=== PATIENT | female | born 1950 | race Caucasian/White ===

== ENCOUNTER → 2021-03-29 | Outpatient (CLI) | payer MEDICARE ==
[2015-03-11 08:59] VITALS: BP 90/55
[~2021-03-29] MED LIST: ASPI-482 PO; ATOR10TA PO; ATOR40TA59 PO; BIOT25006 PO; CALC-98 PO; CELE200C PO; CELE50CA PO; CLOP75TA PO; FERR325T14 PO; FURO20TA3 PO; FURO40TA4 PO; LISI-517 PO; LISI10TA16 PO; METO25TA4 PO; MULT-629 PO; POTA10TA12 PO; POTA99TA PO; REGADENOSON 0.4 MG/5 ML DISP.SYRIN. IV ONE; SERT25TA PO; SERT50TA PO; WARF5TAB2 PO
--- NOTE | 2021-03-29 18:11 | CARD ---
MR#: [id number] Date of Study: 03/29/2021 Ordering Physician: LESLIE SAMUELS, Referring Physician: Marta AVALOS: Bryon Cueva [facility] APPROVED REPORT EXAM: Two-dimensional and M-mode echocardiogram with Doppler and color Doppler. Other Information Quality : AverageLimitedTechnically LimitedExcellentGoodAverageFairPoorHR: 60bpm Rhythm : NSR INDICATION Cardiac Disease: CAD Surgery/Intervention ICD/Pacemaker: 2D DIMENSIONS Left Atrium(2D)3.9 (1.6-4.0cm)IVSd1.3 (0.7-1.1cm) Aortic Root(2D)2.8 (2.0-3.7cm)LVDd4.1 (3.9-5.9cm) LVOT Diameter2.0 (1.8-2.4cm)PWd1.3 (0.7-1.1cm) LVDs2.5 (2.5-4.0cm)FS (%) 39.0 % SV52.8 ml Aortic Valve AoV Peak Milton.198.6cm/sAoV VTI39.1cm AO Peak GR.15.8mmHgLVOT Peak Milton.91.9cm/s LVOT VTI 20.70cmAO Mean GR.9mmHg LADAN (VMAX)1.02pn2OJU (VTI)1.72cm2 Mitral Valve MV E Xfiwomje34.4cm/sMV DECEL AMZL019fg MV A Ybxnboju03.2cm/sMV GQB87dy E/A Ratio0.7MVA (PHT)3.11cm2 TDI E/Lateral E'14.3E/Medial E'17.4 Pulmonary Valve PV Peak Rfbmuqmc436.4cm/sPV Peak Grad.4mmHg Tricuspid Valve TR P. Ozqnywzj322sz/sTR Peak Gr.32mmHg Pulmonary Vein S1 Xgmynulr39.0cm/sD2 Jtsdripv92.3cm/s LEFT VENTRICLE The left ventricle is normal size. There is mild concentric left ventricular hypertrophy. The left ve ntricular systolic function is normal and the ejection fraction is within normal range. Left ventricu lar ejection fraction of 55 to 60%. There is normal LV segmental wall motion. No left ventricle throm bus noted on this study. There is no ventricular septal defect visualized. There is no left ventricul ar aneurysm. There is no mass noted in the left ventricle. RIGHT VENTRICLE The right ventricle is normal size. There is normal right ventricular wall thickness. The right ventr icular systolic function is normal. Device lead noted in the RV. ATRIA The left atrium is borderline dilated. The right atrium size is normal. The interatrial septum is int act with no evidence for an atrial septal defect or patent foramen ovale as noted on 2-D or Doppler i maging. AORTIC VALVE The aortic valve is calcified but opens well. Doppler and Color Flow revealed trace to mild aortic re gurgitation. There is no significant aortic valvular stenosis. There is no aortic valvular vegetation . MITRAL VALVE The mitral valve is normal in structure and function. There is no evidence of mitral valve prolapse. There is no mitral valve stenosis. Doppler and Color-flow revealed mild mitral regurgitation. TRICUSPID VALVE The tricuspid valve is normal in structure and function. Doppler and Color Flow revealed mild tricusp id regurgitation. There is no tricuspid valve prolapse or vegetation. There is no tricuspid valve kuldeep nosis. PULMONIC VALVE The pulmonary valve is normal in structure and function. Doppler and Color Flow revealed no pulmonic valvular regurgitation. There is no pulmonic valvular stenosis. GREAT VESSELS The aortic root is normal in size. The ascending aorta is normal in size. The pulmonary artery is nor mal. The IVC is normal in size and collapses >50% with inspiration. PERICARDIAL EFFUSION There is no pleural effusion. There is no evidence of significant pericardial effusion. Critical Notification Critical Value: No <Conclusion> The left ventricle is normal size. The left ventricular systolic function is normal and the ejection fraction is within normal range. Left ventricular ejection fraction of 55 to 60%. There is mild concentric left ventricular hypertrophy. Doppler and Color Flow revealed trace to mild aortic regurgitation. There is no significant aortic valvular stenosis. Doppler and Color-flow revealed mild mitral regurgitation. Doppler and Color Flow revealed mild tricuspid regurgitation. Signed by : Kranthi Finnegan MD Electronically Approved : 03/29/2021 18:11:24
--- NOTE | 2021-03-29 18:35 | RAD ---
MR#: [id number] Date of Study: 03/29/2021 Ordering Physician: MANISH ESCAMILLA, Referring Physician: ONEYDA VARMA Tech: SORAYA Arias, ARRT (R) (N) APPROVED REPORT Test Type: Pharmacological Stress Nurse/Tech: Vishal Ibarra RN Test Indications: CAD Cardiac History: CABG 1997, [place] with stents, HTN, PPM, x-smoker Medications: See Electronic Medical Record Medical History: See Electronic Medical Record Resting ECG: Pacemaker spikes noted Resting Heart Rate: 60 bpm Resting Blood Pressure: 192/77mmHg Pretest Chest Pain: None Nurse/Tech Notes Lungs CTA, S1S2 Consent: The procedure was explained to the patient in lay terms. Informed consent was witnessed. Juan R eout was entered into [employer]. History and Stress Test performed by RT Lorenzo (R) (N) Pharm. Details Pharmacologic stress testing was performed using 0.4mg per 5ml of regadenoson given intravenously ove r 7-10 seconds. Stress Symptoms No chest pain or symptoms. POST EXERCISE Reason for Termination: Infusion complete Max HR: 72 bpm Max Blood Pressure: 164/64mmHg Blood Pressure response to exercise: Normal blood pressure response during stress. Heart Rate response to exercise: Normal response Chest Pain: No. Arrhythmia: No. ST Change: No. INTERPRETATION Stress EKG Conclusion: The resting EKG shows a paced rhythm. The patient remains in a paced rhythm throughout the study. Imaging Protocol IMAGE PROTOCOL: Rest Tc-99m/stress Tc-99m 1 day Rest: Stress: Viability: Radiopharm.Tc99m PgrxcrqcyZg23g Sestamibi Cjxa45cEz 31mCi Img Date 03/29/2021 03/29/2021 Inj-Img Inqo21jcy. 60min. Rest Admin Site:IV - Right ForearmAdministrator:RT Lorenzo (R)(N) Stress Admin Site: IV - Right ForearmAdministrator: RT Lorenzo (R)(N) STRESS DATA End Diast. Vol.70.0mlLVEDV index BSA45.0ml End Syst. Vol.22.0mlLVESV index BSA14.0ml Myocardial Ityw509.0gEject. Pecifmla74.0% Stress Scores Regional WT1.00Summed WT2.00 Regional WM0.00Summed WM7.00 LV Perfusion The stress scans showed no significant defects with a slight apical defect. The rest scans showed no significant defects with a slight apical defect. Nuclear imaging shows no reversible ischemia. There is a slight fixed apical defect consistent with a technical defect. Wall Motion Left ventricular systolic function is normal with no regional wall motion abnormalities and an ejecti on fraction of greater than 70%. LV Perf. Quant 17 Seg. SSS1.00 17 Seg. SRS1.00 17 Seg. SDS0.00 Stress Defect Extent (% LAD)0.00Rest Defect Extent (% LAD)5.00Rev. Defect Extent (% LAD)0.00 Stress Defect Extent (% LCX) 0.00Rest Defect Extent (% LCX)0.00Rev. Defect Extent (% LCX)0.00 Stress Defect Extent (% RCA)0.00Rest Defect Extent (% RCA)0.00Rev. Defect Extent (% RCA)0.00 Stress Defect Extent (% JOSIAH)0.00Rest Defect Extent (% JOSIAH)2.00Rev. Defect Extent (% JOSIAH)0.00 Conclusion 1. Paced rhythm. 2. Nuclear imaging shows no reversible ischemia or infarct. 3. Left ventricular systolic function is normal with an ejection fraction of greater than 70%. 4. Low risk Lexiscan nuclear stress test. Signed by : Kranthi Finnegan MD Electronically Approved : 03/29/2021 18:35:26
== END ==
LOC: ECHO 07:33
PROVIDERS: ATTEND Internal Medicine Cardiovascular Disease
DX: I08.3 Combined rheumatic disorders of mitral, aortic and tricuspid valves (principal); I25.10 Atherosclerotic heart disease of native coronary artery without angina pectoris
CPT/HCPCS: 78452; 93017; 93306; A9500; J2785